=== PATIENT | male | born 1945 | race Caucasian/White ===

== ENCOUNTER 2020-11-28 11:16 | Emergency (ER) | payer MEDICARE, OTHER ==
[~2020-11-28] VITALS: Ht 170.2 cm; Wt 110.7 kg
[~2020-11-28 11:16] MED LIST: AMLO-150 PO; ATOR10TA9 PO; CETI10TA76 PO; FURO40TA6 PO; GABA300C10 PO; MELO7.5T31 PO; MULT-642 PO; MULTIVITAMIN PO; OXYC1TAB7 PO; PANT40TA6 PO; TRAM50TA2 PO; TRIA5PAS10 TP; WARF2TAB99 PO; [UNRECOGNIZED DRUG - OTHER]
[2020-11-28 12:02] LABS: BASOPHILS % (AUTO) 0 % (0-1); EOSINOPHILS % (AUTO) 1 % (1-7); LYMPHOCYTES % (AUTO) 11 % (22-44); MEAN CORPUSCULAR HEMOGLOBIN 32.9 pg (27.5-34.5); MEAN CORPUSCULAR HGB CONC 34.4 g/dL (33.2-36.2); MEAN PLATELET VOLUME 6.8 fL (7.4-10.4); MONOCYTES % (AUTO) 5 % (2-9); NEUTROPHILS % (AUTO) 84 % (42-75); PLATELET COUNT 339 x10^3/uL (130-400); RED BLOOD COUNT 4.14 x10^6/uL (4.38-5.82); RED CELL DISTRIBUTION WIDTH 13.9 % (9.4-14.8)
--- NOTE | 2020-11-28 12:12 | NUR ---
FIRST CONTACT WITH PT, ASSUME CARE AT THIS TIME. RIGHT FOOT WEAKNESS AND NUMBNESS STARTED YESTERDAY, PATIENT REPORTS "IT FALLS ASLEEP." PATIENT ABLE TO WALK ON IT BUT "BECOMES FATIGUED EASILY." PT IN BED IN GOWN WITH CONT SPO2, BP Q 30 MIN, SIDE MIKE;S UP X2, CALL LIGHT IN REACH. WENT OVER PLAN OF CARE FROM ORDER LIST, AGREES TO PLAN.
[2020-11-28 12:14] LABS: ALANINE AMINOTRANSFERASE 29 U/L (12-78); ALBUMIN 3.4 g/dL (3.4-5.0); ANION GAP 11 mmol/L (5-15); CALCIUM 9.2 mg/dL (8.5-10.1); CHLORIDE 111 mmol/L (98-107); CREATININE 1.27 mg/dL (0.7-1.3)
[2020-11-28 12:17] LABS: ALKALINE PHOSPHATASE 166 U/L (45-117); BILIRUBIN,TOTAL 0.7 mg/dL (0.2-1.0); TOTAL PROTEIN 7.4 g/dL (6.4-8.2)
[2020-11-28 12:35] LABS: INTERNATIONAL NORMALIZED RATIO 2.92 (0.93-1.1)
[2020-11-28 12:48] LABS: PROTHROMBIN TIME 30.6 Seconds (9.6-11.5)
[2020-11-28 14:55] VITALS: BP 124/74
== END 2020-11-28 14:58 | disposition home or self-care (01) ==
LOC: ED 14:37
DX: R20.2 Paresthesia of skin (principal); R53.1 Weakness; I10 Essential (primary) hypertension; Z86.73 Personal history of transient ischemic attack (TIA), and cerebral infarction without residual deficits; Z96.653 Presence of artificial knee joint, bilateral
CPT/HCPCS: 36415; 80053; 85025; 85610; 93922; 99284